=== PATIENT | female | born 1965 | race Caucasian/White ===

== ENCOUNTER 2016-08-21 07:17 | Emergency (ER) | payer BC ==
[2016-08-21] MEDS ORDERED: ASPIRIN 81 MG TABLET, CHEWABLE PO ONE (08:14)
--- NOTE | 2016-08-21 09:15 | RADIOLOGY REPORT (SQ) ---
EXAM DESCRIPTION: CHEST SINGLE VIEW COMPLETED DATE/TIME: 08/21/2016 9:00 am REASON FOR STUDY: cxr COMPARISON: None. NUMBER OF VIEWS: One view. TECHNIQUE: Single frontal radiographic view of the chest acquired. LIMITATIONS: None. FINDINGS: LUNGS AND PLEURA: No opacities, masses or pneumothorax. No pleural effusion. MEDIASTINUM AND HILAR STRUCTURES: Postoperative changes. HEART AND VASCULAR STRUCTURES: Heart normal in size. Normal vasculature. BONES: No acute findings. HARDWARE: Wire sutures mediastinum. OTHER: No other significant finding. IMPRESSION: Nothing acute. TECHNICAL DOCUMENTATION: JOB ID: [id number] [employer]- All Rights Reserved
[2016-08-21 10:33] LABS: ABSOLUTE EOSINOPHILS # (AUTO) 0.1 10^3/uL (0.0-0.6); ABSOLUTE LYMPHOCYTES (AUTO) 1.3 10^3/uL (0.5-4.7); ABSOLUTE MONOCYTES (AUTO) 0.6 10^3/uL (0.1-1.4); ABSOLUTE NEUT (AUTO) 3.4 10^3/uL (1.7-8.2); BASOPHILS % (AUTO) 0.7 % (0-2); EOSINOPHILS % (AUTO) 1.9 % (0-6); HEMATOCRIT 39.3 % (36.0-47.0); HEMOGLOBIN 12.8 g/dL (12.0-15.5); HGB HCT DIFFERENCE -0.9; LYMPHOCYTES % (AUTO) 24.9 % (13-45); MEAN CORPUSCULAR HEMOGLOBIN 29.4 pg (27.0-33.4); MEAN CORPUSCULAR HGB CONC 32.6 g/dL (32.0-36.0); MEAN CORPUSCULAR VOLUME 90 fl (80-97); MONOCYTES % (AUTO) 10.7 % (3-13); RED BLOOD COUNT 4.37 10^6/uL (3.72-5.28); RED CELL DISTRIBUTION WIDTH 14.6 % (11.5-14.0); SEGMENTED NEUTROPHILS % (AUTO) 61.8 % (42-78); WHITE BLOOD COUNT 5.4 10^3/uL (4.0-10.5)
[2016-08-21 10:41] LABS: PROTHROMBIN TIME 12.6 SEC (11.4-15.4)
[2016-08-21 10:45] LABS: ALANINE AMINOTRANSFERASE 38 U/L (9-52); ALBUMIN 3.8 g/dL (3.5-5.0); ALKALINE PHOSPHATASE 119 U/L (38-126); ANION GAP 11 (5-19); ASPARTATE AMINO TRANSFERASE 21 U/L (14-36); BILIRUBIN,DIRECT 0.3 mg/dL (0.0-0.4); BILIRUBIN,TOTAL 0.4 mg/dL (0.2-1.3); BLOOD UREA NITROGEN 25 mg/dL (7-20); CALCIUM 9.4 mg/dL (8.4-10.2); CARBON DIOXIDE 27 mmol/L (22-30); CHLORIDE 103 mmol/L (98-107); CREATINE KINASE 50 U/L (30-135); CREATININE RESULT 0.82 mg/dL (0.52-1.25); GLUCOSE 87 mg/dL (75-110); LIPASE 35.2 U/L (23-300); SODIUM 140.9 mmol/L (137-145); TOTAL PROTEIN 6.7 g/dL (6.3-8.2)
[2016-08-21 10:56] LABS: CREATINE KINASE MB 0.74 ng/mL (<4.55)
[2016-08-21 10:57] LABS: TROPONIN I < 0.012 ng/mL
--- NOTE | 2016-08-21 11:32 | RADIOLOGY REPORT (SQ) ---
EXAM DESCRIPTION: VENOUS UNILATERAL LOWER COMPLETED DATE/TIME: 08/21/2016 11:19 am REASON FOR STUDY: pain left leg / Hx clots COMPARISON: None. TECHNIQUE: Dynamic and static bruce scale and color images acquired of the left leg venous system. Se lected spectral images acquired with additional compression and augmentation maneuvers. The contralat eral common femoral vein and saphenofemoral junction were also imaged. Images stored on PACS. LIMITATIONS: None. FINDINGS: LEFT COMMON FEMORAL: Normal phasicity, compression and augmentation. No visualized echogenic material on g ray scale. No defects on color images. FEMORAL: Normal compression and augmentation. No visualized echogenic material on bruce scale. No defe cts on color images. POPLITEAL: Normal compression, augmentation. No visualized echogenic material on bruce scale. No defec ts on color images. CALF VESSELS: Normal compression, augmentation. No visualized echogenic material on bruce scale. No de fects on color images. GSV and SSV: Normal compression, augmentation. No visualized echogenic material on bruce scale. No def ects on color images. ANY DEEP VENOUS INSUFFICIENCY: Not evaluated. ANY EVIDENCE OF POPLITEAL CYST: No. OTHER: No other significant finding. RIGHT COMMON FEMORAL VEIN AND SAPHENOFEMORAL JUNCTION: Normal phasicity, compression and augmentation. No visualized echogenic material on bruce scale. No de fects on color images. IMPRESSION: NO EVIDENCE OF DVT OR SVT IN THE LEFT LEG. TECHNICAL DOCUMENTATION: JOB ID: [id number] [employer]- All Rights Reserved
--- NOTE | 2016-08-21 14:21 | ER Document Report ---
ED General - General Chief Complaint: Chest Tightness Stated Complaint: LEG PAIN Time Seen by Provider: 08/21/16 08:14 TRAVEL OUTSIDE OF THE [place] IN LAST 30 DAYS: No - HPI Patient complains to provider of: Chest tightness Notes: Coming in for evaluation of chest tightness and bilateral leg pain and swelling. Patient states mostly leg pain left. Patient states his started having chest tightness. Patient states leg swelling ongoing for the last 3 days also states she has gained water weight. Patient has a history of a heart valve replacement recently and beginning of the year. Denies fevers chills nausea vomiting recent travel. - Related Data Allergies/Adverse Reactions: Penicillins Allergy (Verified 08/21/16 07:35) Past Medical History - Social History Smoking Status: Unknown if Ever Smoked Family History: Reviewed & Not Pertinent Patient has suicidal ideation: No Patient has homicidal ideation: No Renal/ Medical History: Denies: Hx Peritoneal Dialysis Review of Systems - Review of Systems Constitutional: No symptoms reported EENT: No symptoms reported Cardiovascular: Chest pain Respiratory: No symptoms reported Gastrointestinal: No symptoms reported Genitourinary: No symptoms reported Female Genitourinary: No symptoms reported Musculoskeletal: Leg swelling Skin: No symptoms reported Hematologic/Lymphatic: No symptoms reported Neurological/Psychological: No symptoms reported -: Yes All other systems reviewed and negative Physical Exam - Vital signs Vitals: Temp Pulse Resp BP Pulse Ox 97.9 F 68 21 H 144/81 H 96 08/21/16 07:36 08/21/16 07:36 08/21/16 07:36 08/21/16 07:36 08/21/16 07:36 Interpretation: Normal - General General appearance: Appears well, Alert - HEENT Head: Normocephalic, Atraumatic Eyes: Normal Pupils: PERRL - Respiratory Respiratory status: No respiratory distress Chest status: Nontender Breath sounds: Normal Chest palpation: Normal - Cardiovascular Rhythm: Regular Heart sounds: Normal auscultation Murmur: No - Abdominal Inspection: Normal Distension: No distension Bowel sounds: Normal Tenderness: Nontender Organomegaly: No organomegaly - Back Back: Normal, Nontender - Extremities General upper extremity: Normal inspection, Nontender, Normal color, Normal ROM , Normal temperature General lower extremity: Normal inspection, Nontender, Edema - +1 bilaterally, Normal color, Normal ROM, Normal temperature, Normal weight bearing. No: Kat' s sign - Neurological Neuro grossly intact: Yes Cognition: Normal Orientation: AAOx4 Rosanna Coma Scale Eye Opening: Spontaneous Rosanna Coma Scale Verbal: Oriented Clyde Coma Scale Motor: Obeys Commands Rosanna Coma Scale Total: 15 Speech: Normal Motor strength normal: LUE, RUE, LLE, RLE Sensory: Normal - Psychological Associated symptoms: Normal affect, Normal mood - Skin Skin Temperature: Warm Skin Moisture: Dry Skin Color: Normal Course - Re-evaluation Re-evalutation: 08/21/16 15:03 Coming in for evaluation of chest tightness and bilateral leg pain. EKG chest x -ray troponins are negative Dopplers are negative patient was encouraged to elevate her legs will be discharged to follow-up with her primary care physician - Vital Signs Vital signs: Temp Pulse Resp BP Pulse Ox 97.9 F 68 15 102/85 96 08/21/16 07:36 08/21/16 07:36 08/21/16 14:31 08/21/16 14:31 08/21/16 14:31 - Laboratory Result Diagrams: 08/21/16 10:11 08/21/16 10:11 Laboratory results interpreted by me: 08/21/16 08/21/16 10:11 10:11 RDW 14.6 H BUN 25 H Discharge - Discharge Clinical Impression: Chest tightness, Peripheral edema Condition: Good Disposition: HOME, SELF-CARE Instructions: Edema, Peripheral ([facility]), Chest Pain of Unclear Cause ([facility]) Additional Instructions: At this time your laboratory studies x-rays sonogram do not show any signs of significant pathology causing her chest tightness today nor your leg swelling. I recommend that she follow-up with your primary care physician elevate your legs at home when resting to aid in the edema. Return to the ER if symptoms worsen Forms: Return to Work
--- NOTE | 2016-08-21 14:34 | EKG REPORT ---
SEVERITY:- ABNORMAL ECG - SINUS RHYTHM PROBABLE LVH WITH SECONDARY REPOL ABNRM : Confirmed by: Jennifer Henry 21-Aug-2016 14:34:06
[2016-08-21 14:52] VITALS: BP 102/85
== END 2016-08-21 14:59 | disposition home or self-care (01) ==
LOC: ER 07:17
DX: R07.89 Other chest pain (principal); R60.0 Localized edema; M79.605 Pain in left leg; M79.604 Pain in right leg; Z95.2 Presence of prosthetic heart valve; Z88.0 Allergy status to penicillin
CPT/HCPCS: 36415; 71010; 80053; 82550; 82553; 83690; 83735; 84484; 85025; 85610; 93005; 93010; 93971; 99285

== ENCOUNTER → 2017-09-10 | Outpatient (CLI) | payer OTHER | LOC: WI 06:50 | PROVIDERS: ATTEND Nurse Practitioner | DX: Z12.31 Encounter for screening mammogram for malignant neoplasm of breast (principal) | CPT/HCPCS: 77063; 77067 ==

== ENCOUNTER → 2017-10-03 | Outpatient (CLI) | payer OTHER ==
--- NOTE | 2017-10-03 16:19 | WOMENS IMAGING REPORT ---
EXAM DESCRIPTION: RIGHT DIAGNOSTIC MAMMO W/CAD; U/S BREAST UNILAT LIMITED COMPLETED DATE/TIME: 10/03/2017 10:11 am; 10/03/2017 10:49 am REASON FOR STUDY: RT BREAST NODULE; RT BREAST NODULE; N63.10 N63.10 UNSPECIFIED LUMP IN THE RIGHT B REAST, UNSPECIFIED JER COMPARISON: None. TECHNIQUE: Cone compression magnification craniocaudal, 90 mediolateral and mediolateral oblique im ages of the breast recorded with digital acquisition. Right breast 90 mediolateral view AND repeat MLO view Right breast ultrasound was also obtained LIMITATIONS: None. FINDINGS: BREAST: Right MASSES: In the right breast retroareolar region lateral to the nipple 9 o'clock position, a subcentim eter cyst is present with milk of calcium layering dependently within the cyst. This is best shown o n the 90 mediolateral view. This correlates with the area of concern on screening mammograms 018. CALCIFICATIONS: Milk of calcium in a subcentimeter cyst right breast retroareolar region laterally as above. ARCHITECTURAL DISTORTION: None. DEVELOPING DENSITY: None. ASYMMETRY: None noted. OTHER: No other significant findings. Read with the assistance of CAD. .[facility] - R2 Cenova Version 1.3 .[facility] - R2 Cenova Version 1.3 .[facility] - R2 Cenova Version 2.4 .[facility] [place] - R2 Cenova Version 2.4 .[facility] - R2 [employer] Operator Version 9.2 Right breast ultrasound: Ultrasound of the right breast 8 o'clock position about 3 cm from the nipple was performed. 2 adjace nt cysts are present, 8 mm and 7 mm in size. These correlate with the findings on mammography today and 09/10/2017 IMPRESSION: No mammographic or sonographic evidence for malignancy right breast. Cyst with milk of calcium in the right retroareolar 8 to 9 o'clock position. BREAST DENSITY: b. There are scattered areas of fibroglandular density. BIRAD: 2 Benign findings. RECOMMENDATION: RECOMMENDED FOLLOW UP: Please continue yearly bilateral screening mammography/tomosy nthesis in August 2018 SPECIFIC INTERVENTION/IMAGING/CONSULTATION RECOMMENDED:No additional intervention/ imaging/consultati on needed at this time. COMMUNICATION:Patient notified by letter COMMENT: The patient has been notified of the results by letter per MQSA requirements. Additional no tification policies are in place for contacting patient with suspicious or incomplete findings. Quality ID #[id number]: The [employer] recommends an annual screening mammogram for women aged 40 years or over. This facility utilizes a reminder system to ensure that all patients receive reminder letters, and/or direct phone calls for appointments. This includes reminders for routine scr eening mammograms, diagnostic mammograms, or other Breast Imaging Interventions when appropriate. Th is patient will be placed in the appropriate reminder system. The [employer] (ACR) has developed recommendations for screening MRI of the breast s in certain patient populations, to be used in conjunction with mammography. Breast MRI surveillanc e may be appropriate for women with more than 20% lifetime risk of developing breast cancer as deter mined by genetic testing, significant family history of the disease, or history of mantle radiation f or Hodgkins Disease. ACR Practice Guidelines 2008. TECHNICAL DOCUMENTATION: FINDING NUMBER: (1) ASSESSMENT: (1) JOB ID: [id number] [employer]- All Rights Reserved Reading location - IP/workstation name: [facility]
--- NOTE | 2017-10-03 16:19 | WOMENS IMAGING REPORT ---
EXAM DESCRIPTION: RIGHT DIAGNOSTIC MAMMO W/CAD; U/S BREAST UNILAT LIMITED COMPLETED DATE/TIME: 10/03/2017 10:11 am; 10/03/2017 10:49 am REASON FOR STUDY: RT BREAST NODULE; RT BREAST NODULE; N63.10 N63.10 UNSPECIFIED LUMP IN THE RIGHT B REAST, UNSPECIFIED JER COMPARISON: None. TECHNIQUE: Cone compression magnification craniocaudal, 90 mediolateral and mediolateral oblique im ages of the breast recorded with digital acquisition. Right breast 90 mediolateral view AND repeat MLO view Right breast ultrasound was also obtained LIMITATIONS: None. FINDINGS: BREAST: Right MASSES: In the right breast retroareolar region lateral to the nipple 9 o'clock position, a subcentim eter cyst is present with milk of calcium layering dependently within the cyst. This is best shown o n the 90 mediolateral view. This correlates with the area of concern on screening mammograms 018. CALCIFICATIONS: Milk of calcium in a subcentimeter cyst right breast retroareolar region laterally as above. ARCHITECTURAL DISTORTION: None. DEVELOPING DENSITY: None. ASYMMETRY: None noted. OTHER: No other significant findings. Read with the assistance of CAD. .[facility] - R2 Cenova Version 1.3 .[facility] - R2 Cenova Version 1.3 .[facility] - R2 Cenova Version 2.4 .[facility] [place] - R2 Cenova Version 2.4 .[facility] - R2 Distribution Technician Version 9.2 Right breast ultrasound: Ultrasound of the right breast 8 o'clock position about 3 cm from the nipple was performed. 2 adjace nt cysts are present, 8 mm and 7 mm in size. These correlate with the findings on mammography today and 09/10/2017 IMPRESSION: No mammographic or sonographic evidence for malignancy right breast. Cyst with milk of calcium in the right retroareolar 8 to 9 o'clock position. BREAST DENSITY: b. There are scattered areas of fibroglandular density. BIRAD: 2 Benign findings. RECOMMENDATION: RECOMMENDED FOLLOW UP: Please continue yearly bilateral screening mammography/tomosy nthesis in August 2018 SPECIFIC INTERVENTION/IMAGING/CONSULTATION RECOMMENDED:No additional intervention/ imaging/consultati on needed at this time. COMMUNICATION:Patient notified by letter COMMENT: The patient has been notified of the results by letter per MQSA requirements. Additional no tification policies are in place for contacting patient with suspicious or incomplete findings. Quality ID #[id number]: [employer] recommends an annual screening mammogram for women aged 40 years or over. This facility utilizes a reminder system to ensure that all patients receive reminder letters, and/or direct phone calls for appointments. This includes reminders for routine scr eening mammograms, diagnostic mammograms, or other Breast Imaging Interventions when appropriate. Th is patient will be placed in the appropriate reminder system. The [employer] (ACR) has developed recommendations for screening MRI of the breast s in certain patient populations, to be used in conjunction with mammography. Breast MRI surveillanc e may be appropriate for women with more than 20% lifetime risk of developing breast cancer as deter mined by genetic testing, significant family history of the disease, or history of mantle radiation f or Hodgkins Disease. ACR Practice Guidelines 2008. TECHNICAL DOCUMENTATION: FINDING NUMBER: (1) ASSESSMENT: (1) JOB ID: [id number] [employer]- All Rights Reserved Reading location - IP/workstation name: [facility]
== END ==
LOC: WI 09:34
PROVIDERS: ATTEND Nurse Practitioner
DX: N60.01 Solitary cyst of right breast (principal)
CPT/HCPCS: 76642

== ENCOUNTER → 2017-11-01 | Outpatient (CLI) | payer OTHER ==
[2017-11-01 17:47] LABS: IRON 50.3 ug/dL (37-170)
[2017-11-01 18:24] LABS: FERRITIN 54.1 ng/mL (11.1-264.0)
[2017-11-03 11:38] LABS: HEPATITIS A AB IGM Negative (Negative); HEPATITIS B CORE AB IGM Negative (Negative); HEPATITS B SURFACE ANTIGEN Negative (Negative)
[2017-11-04 09:21] LABS: ANTINUCLEAR ANTIBODIES Negative (Negative); HEPATITIS C VIRUS ANTIBODY <0.1 s/co ratio (0.0-0.9)
== END ==
LOC: LAB 16:48
PROVIDERS: ATTEND Internal Medicine Gastroenterology
DX: R94.5 Abnormal results of liver function studies (principal)
CPT/HCPCS: 36415; 80074; 82390; 82728; 83540; 86038; 86256

== ENCOUNTER 2017-11-13 11:08 | Day surgery (SDC) | payer OTHER ==
[2017-11-13] MEDS ORDERED: FENTANYL CITRATE INJ/PF 100 MCG/2 ML AMPUL ONE (11:51)
[2017-11-13] MEDS ORDERED: ONDANSETRON HCL INJ/PF 4 MG/2 ML SDV ONE (11:51)
[2017-11-13] MEDS ORDERED: DIPHENHYDRAMINE HCL 50 MG/ML VIAL ONE (11:51)
[2017-11-13] MEDS ORDERED: GLUCAGON,HUMAN RECOMB 1 MG INJ ONE (11:52)
[2017-11-13] MEDS ORDERED: FLUMAZENIL INJ 0.5 MG/5 ML VIAL ONE (11:52)
[2017-11-13] MEDS ORDERED: NALOXONE HCL INJ/PF 0.4 MG/1 ML SDV ONE (11:52)
[2017-11-13] MEDS ORDERED: EPINEPHRINE INJ 1 MG/10 ML DISP.SYRIN ONE (11:52)
[2017-11-13] MEDS: MIDAZOLAM 2 MG/2 ML INJ ONE ×3 (12:21→12:27)
--- NOTE | 2017-11-13 12:38 | Operative Report ---
Operative Report DATE OF SURGERY: 11/13/17 Operative Report: The risks benefits and alternatives of the procedure explained to the patient in detail and informed consent is obtained.A GIF Olympus video scope was inserted into the patient's mouth and hypopharynx, the esophagus is identified intubated and insufflated, the scope was then advanced through the esophagus stomach and duodenum, retroflexion maneuver is done, the esophagus stomach and first and second portions of the duodenum examined PREOPERATIVE DIAGNOSIS: Dyspepsia POSTOPERATIVE DIAGNOSIS: Gastritis. Gastric erosion. Hiatal hernia OPERATION: EGD with biopsy SURGEON: NEFTALY VIVAR ANESTHESIA: Moderate Sedation - 4 mg of Versed, 50 mcg of fentanyl. Conscious sedation monitoring time 30 minutes. TISSUE REMOVED OR ALTERED: As noted above. COMPLICATIONS: None. ESTIMATED BLOOD LOSS: None. INTRAOPERATIVE FINDINGS: As noted above. PROCEDURE: Patient tolerated procedure well. No immediate postprocedure complications are noted. Patient discharged in good condition. Discharge date 11/13/2017. Discharge diet: Regular. Discharge activity: Regular. 2-3 week follow-up to discuss findings. We will wait on pathology. Patient is instructed to call the office or proceed to the emergency room should there be any further problems or questions.
[2017-11-13 13:28] VITALS: BP 107/71
== END 2017-11-13 13:30 | disposition home or self-care (01) ==
LOC: END 11:08
PROVIDERS: ATTEND Internal Medicine Gastroenterology
DX: K29.50 Unspecified chronic gastritis without bleeding (principal); K44.9 Diaphragmatic hernia without obstruction or gangrene; K76.0 Fatty (change of) liver, not elsewhere classified; R94.5 Abnormal results of liver function studies
CPT/HCPCS: 43239; 88305 ×2; J2250; J3010; J0171; J1200; J1610; J2310; J2405; J3490